=== PATIENT | female | born 1975 | race Caucasian/White ===

== ENCOUNTER 2022-08-28 13:56 | Outpatient (CLI) | payer BC, SELFPAY | END 2022-08-28 13:57 | disposition home or self-care (01) | PROVIDERS: PCP Family Medicine; Visit Provider Nurse Practitioner Family | DX: R30.0 Dysuria (principal) | CPT/HCPCS: 87086 ==

== ENCOUNTER 2024-03-28 08:40 | Outpatient (CLI) | payer BC, SELFPAY ==
[2024-03-30 04:57] LABS: HPV Source Cervical; HPV, High Risk by TMA Not Detected
== END 2024-03-28 08:41 | disposition home or self-care (01) ==
PROVIDERS: PCP Registered Nurse; Visit Provider Registered Nurse
DX: Z12.4 Encounter for screening for malignant neoplasm of cervix (principal); Z11.51 Encounter for screening for human papillomavirus (HPV)
CPT/HCPCS: 87624; 87625; 88141; 88142